=== PATIENT | female | born 1955 | race Hispanic/Latino ===

== ENCOUNTER 2018-05-09 18:16 | Emergency (ER) | payer MEDICAID ==
[2018-05-09] MEDS ORDERED: Permethrin 1% Kit 59 ML BOTTLE TOP ONE (19:46)
--- NOTE | 2018-05-09 19:49 | C.PDOC ---
History Of Present Illness Patient is a 62 year old female who presents to the ED c/o head and body lice that have been present for 3 months after she began staying with a friend that has not had her apartment treated for lice. Patient noted by triage nurse to have lice on clothing. Time Seen by Provider: 05/09/18 18:46 Chief Complaint (Nursing): Abnormal Skin Integrity History Per: Patient History/Exam Limitations: no limitations Onset/Duration Of Symptoms: Other (3 months ) Current Symptoms Are (Timing): Still Present Recent travel outside of the [place]: No Additional History Per: Patient Past Medical History Reviewed: Historical Data, Nursing Documentation, Vital Signs Vital Signs: Last Vital Signs Temp 97.7 F 05/09/18 18:33 Pulse 71 05/09/18 18:33 Resp 18 05/09/18 18:33 BP 115/77 05/09/18 18:33 Pulse Ox 95 05/09/18 18:33 - Medical History PMH: No Chronic Diseases Surgical History: No Surg Hx Family History: States: No Known Family Hx - Social History Hx Alcohol Use: No Hx Substance Use: No - Immunization History Hx Tetanus Toxoid Vaccination: No Hx Influenza Vaccination: Yes Hx Pneumococcal Vaccination: No Review Of Systems Constitutional: Negative for: Fever, Chills Skin: Positive for: Other (lice on clothing, multiple scabbed over excoriations on torso and arms) Physical Exam - Physical Exam Appears: Non-toxic, No Acute Distress Skin: Other (excoriations and scabs bilater upper extremities and lower legs and abdomen, no surrounding erythema) Neurological/Psych: Oriented x3, Normal Speech, Normal Cognition ED Course And Treatment O2 Sat by Pulse Oximetry: 95 (on RA) Pulse Ox Interpretation: Normal Medical Decision Making Medical Decision Making: Plan: Permethrin 1% 59ml TOP Permetrhin 5% 60gm TOP Clean clothing provided Current clothing placed in sealed bag Patient instructed to use Permethrin 1% in hair in shower and apply Permethrin 5% to stay on for next 12 hours Discussed with patient that she needs to wash off in 8-12 hours Patient made aware that if she goes back to current apartment she will likely be re-infested with lice Disposition Counseled Patient/Family Regarding: Diagnosis, Need For Followup - Disposition Referrals: [facility] [Outside] Disposition: HOME/ ROUTINE Disposition Time: 22:13 Condition: GOOD Additional Instructions: Wash permethrin off in 12 hours Wash all clothing and bedding in hot soapy water and put in hot sryer If you stay in apartment that hasn't been treated for lice, you will get them again. Benadryl for itch Instructions: Head Lice (DC), Permethrin Forms: General Discharge Instructions, [facility] (Hebrew) - Clinical Impression Clinical Impression: Lice infestation - PA / [employer] / Resident Statement MD/DO has examined the patient and agrees with the treatment plan. - Scribe Statement The provider has reviewed the documentation as recorded by the Marlyibne Velazquez All medical record entries made by the Marlyibe were at my direction and perso blaine dictated by me. I have reviewed the chart and agree that the record accurately reflects my personal performance of the history, physical exam, medical decision making, and the department course for this patient. I have also personally directed, reviewed, and agree with the discharge instructions and disposition.
[2018-05-09] MEDS ORDERED: Permethrin 5% Cream(60 gm) TOP ONE (20:09)
[2018-05-09 22:46] VITALS: RESP 16
[2018-05-09 23:52] VITALS: BP 116/76; PULSE 83; TEMP 98.2
[2018-05-18 19:12] VITALS: O2SAT 95
== END 2018-05-09 22:57 | disposition home or self-care (01) ==
LOC: MERGE 18:16 → C.ER 18:16
DX: B85.2 Pediculosis, unspecified (principal)